=== PATIENT | female | born 1995 | race Caucasian/White ===

== ENCOUNTER → 2024-03-28 07:01 | Outpatient (REF) | payer BC, SELFPAY | LOC: PNTC 07:01 | PROVIDERS: ATTENDING PHYSICIAN Advanced Practice Midwife | DX: O99.210 Obesity complicating pregnancy, unspecified trimester (principal); Z34.82 Encounter for supervision of other normal pregnancy, second trimester | CPT/HCPCS: 76805 ==

== ENCOUNTER → 2024-07-19 07:12 | Outpatient (REF) | payer BC, SELFPAY | LOC: PNTC 07:12 | PROVIDERS: ATTENDING PHYSICIAN Advanced Practice Midwife | DX: O99.210 Obesity complicating pregnancy, unspecified trimester (principal) | CPT/HCPCS: 59025; 76815 ==

== ENCOUNTER → 2024-07-25 06:44 | Outpatient (REF) | payer BC, SELFPAY | LOC: PNTC 06:44 | PROVIDERS: ATTENDING PHYSICIAN Advanced Practice Midwife | DX: O99.210 Obesity complicating pregnancy, unspecified trimester (principal) | CPT/HCPCS: 59025 ==

== ENCOUNTER → 2024-08-02 07:50 | Outpatient (REF) | payer BC, SELFPAY | LOC: PNTC 07:50 | PROVIDERS: ATTENDING PHYSICIAN Advanced Practice Midwife | DX: O99.210 Obesity complicating pregnancy, unspecified trimester (principal) | CPT/HCPCS: 59025; 76815 ==

== ENCOUNTER → 2024-08-09 07:57 | Outpatient (REF) | payer BC, SELFPAY | LOC: PNTC 07:57 | PROVIDERS: ATTENDING PHYSICIAN Advanced Practice Midwife | DX: O99.210 Obesity complicating pregnancy, unspecified trimester (principal) | CPT/HCPCS: 59025; 76815 ==

== ENCOUNTER → 2024-08-16 07:53 | Outpatient (REF) | payer BC, SELFPAY | LOC: PNTC 07:53 | PROVIDERS: ATTENDING PHYSICIAN Advanced Practice Midwife | DX: O99.210 Obesity complicating pregnancy, unspecified trimester (principal) | CPT/HCPCS: 36415; 59025; 76815 ==

== ENCOUNTER 2024-08-20 18:04 | Inpatient (IN) | payer BC, SELFPAY ==
[2024-08-20] MEDS: LR 1000 IV (18:00)
[2024-08-20 18:12] VITALS: BP 181/105; BMI 42.5
[2024-08-20] MEDS: ADALAT 10 MG PO (19:07)
[2024-08-20 19:14] LABS: ALT (SGPT) 16 U/L (0-35); AST (SGOT) 30 U/L (14-36); Albumin 3.6 g/dl (3.5-5.0); Alkaline Phosphatase 140 U/L (38-126); Blood Urea Nitrogen 14 mg/dl (7-17); Carbon Dioxide 21 mmol/L (22-30); Chloride 104 mmol/L (98-107); Estimated Creatinine Clearance > 125 ml/min; Glucose 86 mg/dl (70-99); Potassium 4.1 mmol/L (3.5-5.1); Sodium 135 mmol/L (135-145); Total Bilirubin 0.3 mg/dl (0.2-1.3); Total Protein 6.3 g/dl (6.3-8.2); eGFR > 60.00
[2024-08-20 19:16] LABS: % Basophils 0.2 % (0-2); % Eosinophils 1.3 % (0-6); % Immature Granulocytes 0.3 % (0-0.5); % Lymphocytes 23.7 % (20.5-51.1); % Monocytes 8.7 % (1.7-9.3); % Neutrophils 65.8 % (42.2-75.2); Absolute Eosinophils 0.1 10^3/uL (0-0.7); Absolute Lymphocytes 2.3 10^3/uL (1.2-3.4); Absolute Monocytes 0.9 10^3/uL (0.1-0.6); Absolute Neutrophils 6.4 10^3/uL (1.4-6.5); Hematocrit 36.5 % (37.0-47.0); Hemoglobin 11.9 g/dL (12.0-16.0); Mean Corp Hgb Conc. 32.6 g/dL (33.0-37.0); Mean Corpuscular Hgb 27.4 pg (27.0-31.0); Mean Corpuscular Volume 83.9 fL (81.0-99.0); Mean Platelet Volume 14.1 fL (7.4-10.4); Nucleated Red Blood Cells % 0 %; Platelet Count 165 10^3/uL (130-400); Red Blood Cell Count 4.35 10^6/uL (4.20-5.40); Red Cell Dist. Width 14.6 % (11.5-14.5); White Blood Cell Count 9.8 10^3/uL (4.8-10.8)
[2024-08-20 19:25] LABS: Protein/creatinine Ratio 0.2; Urine Protein 11 mg/dl
[2024-08-20] MEDS: ADALAT 20 MG PO (19:31)
[2024-08-20] MEDS: CYTOTEC 50 MICROGRAM PO (19:55)
[2024-08-21] MEDS: TUMS CHEWABLE TABLET 400 MG PO ×2 (00:53→08:36)
[2024-08-21] MEDS: TYLENOL 1000 MG PO (00:53)
[2024-08-21] MEDS: CYTOTEC 50 MICROGRAM PO (01:42)
[2024-08-21] MEDS: CYTOTEC PO ×2 (06:30→08:00)
[2024-08-21] MEDS: PITOCIN 30 UNITS/NSS 500 ML IV ×2 (08:33→15:00)
[2024-08-21] MEDS: LR 1000 IV ×2 (08:33→14:27)
[2024-08-21] MEDS: SYNTHROID 150 MCG PO (08:36)
[2024-08-21] MEDS: STADOL 1 MG IV (13:55)
[2024-08-21] MEDS: SUBLIMAZE 100 MCG EPIDURAL (14:27)
[2024-08-21] MEDS: FENTANYL/BUPIVACAINE 100 EPIDURAL (14:28)
[2024-08-21 14:29] LABS: % Basophils 0.3 % (0-2); % Eosinophils 0.8 % (0-6); % Immature Granulocytes 0.4 % (0-0.5); % Lymphocytes 22.5 % (20.5-51.1); % Monocytes 6.3 % (1.7-9.3); % Neutrophils 69.7 % (42.2-75.2); Absolute Eosinophils 0.1 10^3/uL (0-0.7); Absolute Lymphocytes 2.5 10^3/uL (1.2-3.4); Absolute Monocytes 0.7 10^3/uL (0.1-0.6); Absolute Neutrophils 7.8 10^3/uL (1.4-6.5); Hematocrit 37.3 % (37.0-47.0); Mean Corp Hgb Conc. 32.2 g/dL (33.0-37.0); Mean Corpuscular Hgb 26.9 pg (27.0-31.0); Mean Corpuscular Volume 83.6 fL (81.0-99.0); Nucleated Red Blood Cells % 0 %; Platelet Count 170 10^3/uL (130-400); Red Blood Cell Count 4.46 10^6/uL (4.20-5.40); Red Cell Dist. Width 14.8 % (11.5-14.5); White Blood Cell Count 11.2 10^3/uL (4.8-10.8)
[2024-08-21 14:39] LABS: ALT (SGPT) 18 U/L (0-35); AST (SGOT) 34 U/L (14-36); Albumin 3.7 g/dl (3.5-5.0); Alkaline Phosphatase 156 U/L (38-126); Blood Urea Nitrogen 13 mg/dl (7-17); Calcium 10.3 mg/dl (8.4-10.2); Carbon Dioxide 22 mmol/L (22-30); Chloride 104 mmol/L (98-107); Estimated Creatinine Clearance > 125 ml/min; Glucose 112 mg/dl (70-99); Potassium 3.9 mmol/L (3.5-5.1); Sodium 136 mmol/L (135-145); Total Bilirubin 0.4 mg/dl (0.2-1.3); Total Protein 6.4 g/dl (6.3-8.2); eGFR > 60.00
[2024-08-21] MEDS: SENOKOT-S 1 TABLET PO (18:29)
[2024-08-21] MEDS: MOTRIN 600 MG PO ×2 (18:29→23:45)
[2024-08-21] MEDS: TYLENOL 650 MG PO ×2 (18:29→23:44)
[2024-08-21] MEDS: HYDROCORTISONE 2.5% OINTMENT 1 APPLIC TOPICAL (20:00)
[2024-08-22] MEDS: SYNTHROID 150 MCG PO (05:07)
[2024-08-22 05:15] LABS: Hematocrit 32.9 % (37.0-47.0); Hemoglobin 10.9 g/dL (12.0-16.0)
[2024-08-22 08:13] LABS: Cord VBG B.E. - POC -10.9 mmol/L; Cord VBG HCO3 - POC 24 mmol/L; Cord VBG pCO2 - POC 100 mmHg; Cord VBG pH - POC 6.99; Cord VBG pO2 - POC < 40 mmHg
[2024-08-22 08:13] LABS: Cord ABG B.E. - POC -13.3 mmol/L; Cord ABG HCO3 - POC 23 mmol/L; Cord ABG pCO2 - POC 115 mmHg; Cord ABG pH - POC 6.92; Cord ABG pO2 - POC < 40 mmHg
[2024-08-22] MEDS: PRENATAL PLUS 1 TABLET PO (09:26)
[2024-08-22] MEDS: SENOKOT-S 1 TABLET PO (09:37)
[2024-08-22] MEDS: TYLENOL 650 MG PO ×3 (09:37→22:12)
[2024-08-22] MEDS: MOTRIN 600 MG PO ×3 (09:37→22:12)
[2024-08-23] MEDS: SYNTHROID 150 MCG PO (05:11)
[2024-08-23] MEDS: TYLENOL 650 MG PO ×2 (05:11→10:47)
[2024-08-23] MEDS: MOTRIN 600 MG PO ×2 (05:11→10:46)
[2024-08-23] MEDS: PRENATAL PLUS 1 TABLET PO (09:36)
[2024-08-23 15:43] LABS: Syphilis/T. pallidum Ab Reflex Negative (Negative)
== END 2024-08-23 12:47 | disposition home or self-care (01) | DRG 807 ==
LOC: LDRP 18:04
PROVIDERS: Obstetrics & Gynecology; ADMITTING PHYSICIAN Advanced Practice Midwife
PROC: 3E0P7VZ Introduction of Hormone into Female Reproductive, Via Natural or Artificial Opening (ICD-10-PCS; 2024-08-20)
PROC: 3E033VJ Introduction of Other Hormone into Peripheral Vein, Percutaneous Approach (ICD-10-PCS; 2024-08-21)
PROC: 0HQ9XZZ Repair Perineum Skin, External Approach (ICD-10-PCS; 2024-08-21)
PROC: 10E0XZZ Delivery of Products of Conception, External Approach (ICD-10-PCS; 2024-08-21)
DX: O13.4 Gestational [pregnancy-induced] hypertension without significant proteinuria, complicating childbirth (principal); Z37.0 Single live birth; O69.81X0 Labor and delivery complicated by cord around neck, without compression, not applicable or unspecified; O70.0 First degree perineal laceration during delivery; Z3A.37 37 weeks gestation of pregnancy
CPT/HCPCS: 88307; 80053; 82570; 84156; 85014; 85018; 85025; 86780; 86850; 86900; 86901